=== PATIENT | male | born 1975 ===

== ENCOUNTER 2024-10-20 14:04 | Emergency (ER) | payer OTHER ==
[~2024-10-20] VITALS: Ht 170.2 cm; Wt 63.2 kg
[2024-10-20 14:11] VITALS: BP 130/77; PULSE 100; RESP 18; O2SAT 99
--- NOTE | 2024-10-20 14:19 | Physician Documentation ---
History of Present Illness ~ Chief Complaint: Wound Stated Complaint: WOUND CARE Time Seen by MD: 14:55 HPI This is a 49-year-old male who presents with request for wound care to his multiple small wounds to legs and feet due to I think someone threw maggots on me and "I want the wounds cleaned". Patient denies fever or chills. Patient reports that he is unhoused. Medication Reconciliation Allergies: Coded Allergies: No Known Allergies (Unverified , 10/20/24) Scheduled Mupirocin* (Bactroban*), 1 APPLIC TOP Q8H Past Medical History Past Medical History: *PSYCH* Review of Systems ROS As stated above in the HPI, otherwise all systems are reviewed and negative. Physical Exam Vital Signs: Temperature: 97.6, Source: Temporal, Heart Rate: 100, Respiratory Rate: 18, BP: 130/77, Pulse Oximetry: 99, Weight: 63.250 Physical Exam VITALS: Reviewed and as above. GENERAL: Alert, nontoxic appearing, no apparent distress. RESPIRATORY: No increased work of breathing, no respiratory distress, speaking in full clear sentences SKIN: Multiple small abrasions to bilateral lower extremities and a small surface laceration not amenable to suturing to right oquendo, no signs of infection including no erythema, induration, discharge, or fluctuance. No evidence of retained foreign body PSYCH: Bizarre mood and affect, multiple delusional statements, no statements of HI or SI, able to formulate plan of care for himself Progress Results/Orders Results/Orders Vital Signs 10/20/24 10/20/24 14:11 15:30 Temp 97.6 97.6 Pulse 100 Resp 18 B/P (MAP) 130/77 Pulse Ox 99 Medical Decision Making Findings This 49-year-old male presented with multiple abrasions to bilateral lower extremities, patient seems to have delusional thoughts of someone throwing insect larva on him, wounds to the legs appear to be superficial and noninfected, the wound patient was most concerned about was a very small superficial laceration that has not amenable to suturing, this laceration was cleaned by nursing staff. As patient reports he sustained multiple small abrasions due to being on housed he will be provided mupirocin for these minor wounds. While patient did seem to have some delusional thoughts he appears able to plan care for himself and is not voicing homicidal or suicidal ideation therefore I do not believe patient meets criteria for mental health hold. Remainder of physical exam was benign and patient is otherwise well-appearing with stable vital signs and appropriate for outpatient follow up. Patient provided wound care instructions, follow up instructions, and return to care precautions which he verbalized understanding of. Differential Dx:Considerations: Include: Abscess, Cellulitis, Healing wound, Other (Retained foreign body) Departure Disposition: HOME / SELF CARE / HOMELESS Impression: Primary Impression: Wound Condition: Improved Discharge Instructions: How to Change Your Wound Dressing, [id number] Additional Instructions: Keep the wound clean dry and covered, you may use the prescribed mupirocin on any cast and scratches you receive for washing them thoroughly with clean water and soap. Please follow up with your primary care provider or [facility] in the next few days. Please return to the emergency department for any new or worsening concerning symptoms. Referrals: NO PRIMARY CARE PROVIDER (PCP) Prescriptions Mupirocin* (Bactroban*) 22 Gm Tube 1 APPLIC TOP Q8H for 5 Days, #15 GM apply to affected area(s) Prov: MEGAN TRIPP 10/20/24 Education Educated: Patient Educated regarding: diagnosis, treatment, prognosis, need for follow up Additional Comment Medical Screen Exam History: This is a 49-year-old male who presents with request for wound care to his multiple small wounds to legs and feet due to I think someone threw maggots on me and "I want the wounds cleaned". Patient denies fever or chills. Exam: VITALS: Reviewed and as above. GENERAL: Alert, nontoxic appearing, no apparent distress. RESPIRATORY: No increased work of breathing, no respiratory distress, speaking in full clear sentences SKIN: Multiple small abrasions to bilateral lower extremities MSE performed in triage and patient returned to ED lobby by nursing staff available ED room, patient is well-appearing and hemodynamically stable The note accurately reflects work and decisions made by me.TERRELL Brown 10/20/24 14:19 Signature Scribe Signature: No scribe Attestation: The note accurately reflects work and decisions made by me.TERRELL Brown 10/21/24 01:19 MEGAN TRIPP Oct 20, 2024 14:19
[2024-10-20] MEDS ORDERED: MUPI22OI30 TOP (15:21)
[2024-10-20 15:30] VITALS: TEMP 97.6
== END 2024-10-20 15:31 | disposition home or self-care (01) ==
LOC: ER 14:05
DX: S81.811A Laceration without foreign body, right lower leg, initial encounter (principal); S80.812A Abrasion, left lower leg, initial encounter; S80.811A Abrasion, right lower leg, initial encounter; Z59.00 Homelessness unspecified; Z79.899 Other long term (current) drug therapy; X58.XXXA Exposure to other specified factors, initial encounter; Y93.89 Activity, other specified; Y92.89 Other specified places as the place of occurrence of the external cause; Y99.8 Other external cause status
CPT/HCPCS: 99283